=== PATIENT | female | born 1970 | race Caucasian/White ===

== ENCOUNTER 2016-08-06 15:11 | Emergency (ER) | payer MEDICAID ==
[~2016-08-06] VITALS: Ht 167.6 cm; Wt 90.7 kg
[2016-08-06 15:14] VITALS: BP 130/98; PULSE 110; RESP 18; TEMP 99.5; O2SAT 98
[2016-08-06] MEDS ORDERED: PENICILLIN G BENZATHINE 1.2 MMU/2 ML SYR IM ONE (17:30)
[2016-08-06] MEDS ORDERED: KETOROLAC TROMETHAMINE 60 MG/2 ML VIAL IM ONE (17:30)
[2016-08-06] MEDS ORDERED: PREDNISONE 20 MG TABLET PO ONE (17:30)
[2016-08-06 18:18] VITALS: BP 120/70; PULSE 76; RESP 14; TEMP 98; O2SAT 99
== END 2016-08-06 18:18 | disposition home or self-care (01) ==
LOC: SED 15:11
DX: J02.9 Acute pharyngitis, unspecified (principal); R51 Headache
CPT/HCPCS: 81025; 96372; 99284; J0561; J1885; J7512

== ENCOUNTER 2017-04-13 07:03 | Emergency (ER) | payer SELFPAY ==
[~2017-04-13] VITALS: Ht 167.6 cm; Wt 86.2 kg
[2017-04-13 07:08] VITALS: BP_SYST 108
[2017-04-13 07:26] VITALS: BP_SYST 110
== END 2017-04-13 07:26 | disposition home or self-care (01) ==
LOC: SED 07:03
DX: J06.9 Acute upper respiratory infection, unspecified (principal); J02.9 Acute pharyngitis, unspecified; B96.89 Other specified bacterial agents as the cause of diseases classified elsewhere
CPT/HCPCS: 99283

== ENCOUNTER 2023-10-15 21:19 | Emergency (ER) | payer BC, MEDICAID ==
[~2023-10-15] VITALS: Ht 167.6 cm; Wt 97.5 kg
[2023-10-15 22:00] VITALS: BP_SYST 139; PULSE 100; RESP 18; TEMP 98; O2SAT 97
[2023-10-15 22:23] LABS: CLARITY/URINE CLEAR (CLEAR); COLOR,URINE YELLOW (YELLOW); GLUCOSE,URINE NEGATIVE (NEGATIVE); PROTEIN URINE NEGATIVE (NEGATIVE)
[2023-10-15 22:24] LABS: BILIRUBIN,URINE NEGATIVE (NEGATIVE); BLOOD, URINE NEGATIVE (NEGATIVE); KETONES,URINE NEGATIVE (NEGATIVE); LEUKOCYTE ESTERASE ,URINE NEGATIVE (NEGATIVE); NITRITE, URINE NEGATIVE (NEGATIVE); UROBILINOGEN,URINE 0.2 (0.2-1.0)
[2023-10-15] MEDS: NACL 0.9% 1,000 ML IV ONE (22:39)
[2023-10-15] MEDS: KETOROLAC TROMETHAMINE 30 MG VIAL IVP ONE (22:46)
[2023-10-15 23:44] LABS: BASOPHILS # (AUTO) 0.1 K/uL (0.0-0.2); BASOPHILS % (AUTO) 0.7 % (0.0-2.0); EOSINOPHILS # (AUTO) 0.2 K/uL (0.0-0.4); EOSINOPHILS % (AUTO) 2.5 % (0.0-4.0); HEMATOCRIT 37.9 % (36-48); HEMOGLOBIN 13.2 g/dL (12.0-16.0); LYMPHOCYTES # (AUTO) 2.5 K/uL (1.0-5.5); LYMPHOCYTES % (AUTO) 33.5 % (20.5-51.5); MEAN CORPUSCULAR HEMOGLOBIN 31 pg (27-31); MEAN CORPUSCULAR HGB CONC 35 % (32-36); MEAN CORPUSCULAR VOLUME 89 fL (79.0-98.0); MONOCYTES # (AUTO) 0.5 K/uL (0.0-1.0); MONOCYTES % (AUTO) 7.3 % (1.7-9.3); NEUTROPHILS # (AUTO) 4.1 K/uL (1.8-7.7); PLATELET COUNT (AUTO) 308 K/uL (130-430); RED BLOOD CELL COUNT(AUTO) 4.25 MIL/uL (4.2-6.2); RED CELL DISTRIBUTION WIDTH 13.5 % (9.0-15.0); WHITE BLOOD COUNT (AUTO) 7.4 K/uL (4.8-10.8)
[2023-10-16 00:08] LABS: ALBUMIN 3.2 g/dL (3.4-4.8); BILIRUBIN,DIRECT 0.1 mg/dL (0.0-0.3); CALCIUM 8.6 mg/dL (8.4-11.0); CREATININE 0.8 mg/dL (0.55-1.30); POTASSIUM 3.6 mmol/L (3.5-5.1); TOTAL BILIRUBIN 0.3 mg/dL (0.0-1.0)
[2023-10-16] MEDS ORDERED: ESOM40CA PO (01:17)
[2023-10-16 01:21] VITALS: BP_SYST 151; PULSE 86; RESP 18; TEMP 97.5; O2SAT 98
== END 2023-10-16 01:21 | disposition home or self-care (01) ==
LOC: SED 21:19
DX: K29.60 Other gastritis without bleeding (principal); R10.12 Left upper quadrant pain; R11.0 Nausea; Z79.899 Other long term (current) drug therapy
CPT/HCPCS: 99285; 74176; 96374; 96361; 80076; 80048; 81001; 85025; 36415; 81025; 81003; J1885; J7030